=== PATIENT | male | born 1995 | race Caucasian/White ===

== ENCOUNTER 2024-05-31 04:00 | Day surgery (SDC) | payer OTHER ==
[~2024-05-31] VITALS: Ht 274.3 cm; Wt 82.8 kg
[2024-05-31] VITALS (238 sets, daily range): BP systolic 59–214; BP diastolic 39–178
--- NOTE | 2024-05-31 07:00 | NUR ---
Arrival & Pre-treatment Patient arrived to the ANR suite, identification and demographics confirmed. Patient to room 7, AAO, ambulatory, vitals obtained, ID/allergy/fall bands placed, changed into hospital gown, FERNANDA hose, and non-slip socks. Procedure and timeline explained for treatment and discharge. All questions answered and the patient presents no concerns at this time. V/S assessed, call light is near. Dr. Ren telephoned with patient intake information including usage, dose, last dose/time taken and initial vital signs. Patient history and allergies reviewed with MD. Orders received for 10mg PO Valium and 0.3mg PO Clonidine now. Will reassess per protocol and update MD with assessment and vitals.
[2024-05-31] MEDS ORDERED: DEXMEDETOMIDINE HCL IN SODIUM 100 ML IV SCH (07:25)
[2024-05-31] MEDS ORDERED: PHENYLEPHRINE HCL 10 MG in DEXTROSE 5% 250 ML IV SCH (07:25)
[2024-05-31] MEDS ORDERED: CYANOCOBALAMIN 500 MCG/TAB ( B12) PO PRN (07:30)
[2024-05-31] MEDS ORDERED: diazePAM 5 MG/TAB PO PRN ×2 (07:30→08:30)
[2024-05-31] MEDS ORDERED: cloNIDine HCL 0.1 MG/TAB PO PRN (07:30)
[2024-05-31] MEDS ORDERED: SODIUM CHLORIDE 0.9% 1,000 ML IV PRN ×3 (07:30→14:25)
[2024-05-31] MEDS ORDERED: PANTOPRAZOLE SODIUM Sesquihydr 40 MG/TAB PO PRN (07:30)
[2024-05-31] MEDS ORDERED: FAMOTIDINE 20 MG/TAB PO PRN (07:30)
[2024-05-31] MEDS ORDERED: SCOPOLAMINE 1.5 MG DIS TD PRN (07:30)
[2024-05-31] MEDS ORDERED: LACTATED RINGER'S 1,000 ML IV PRN ×2 (07:30→09:15)
[2024-05-31] MEDS ORDERED: ALBUTEROL SULFATE 2.5 MG VIAL IN PRN (07:30)
--- NOTE | 2024-05-31 07:30 | NUR ---
Patient medicated per MD orders. In addition to Clonidine and Valium, patient received 1000 mcg B12 PO, 20 mg Pepcid PO, and Scopolamine TD patch. Medication indication and education provided prior to adminstration.
[2024-05-31] MEDS ORDERED: ASCORBIC ACID 4,000 MG in SODIUM CHLORIDE 0.9% 1,000 ML IV SCH (08:00)
[2024-05-31 08:15] LABS: BASO% 0.6 % (0-3); HEMATOCRIT 44.9 % (39.0-50.0); HEMOGLOBIN 15.5 g/dl (14.0-18.0); IMMATURE GRANULOCYTES 0.1 % (0.0-5.0); LYMPH% 33.6 % (15-41); MEAN CELL VOLUME 86.5 fL CALC (80.0-100.0); MEAN CORPUSCULAR HGB 29.9 pG CALC (26.0-32.0); MEAN CORPUSCULAR HGB CONC 34.5 g/dL CAL (32.0-36.0); MONO% 7.1 % (2-13); NEUT# 4.48 thou/uL (1.82-7.42); NEUT% 54.6 % (42-76); RED BLOOD COUNT 5.19 mill/uL (4.70-6.10); RED CELL DISTRI WIDTH 11.6 % (11.5-15.5)
[2024-05-31 08:28] LABS: ALBUMIN 4.5 g/dL (3.2-5.0); BILIRUBIN, TOTAL 0.6 mg/dL (0.2-1.3); CREATININE 0.8 mg/dL (0.7-1.3); POTASSIUM 4.2 mmol/l (3.5-5.1); TOTAL PROTEIN 7.3 g/dL (6.3-8.2)
--- NOTE | 2024-05-31 08:30 | NUR ---
Dr. Ren telephoned with reassessment and new vital signs. Reviewed initial Valium and Clonidine dose with MD. Orders received for 5mg PO Valium now. Will reassess per protocol in 1.5 hours and update MD with assessment and vitals.
--- NOTE | 2024-05-31 08:40 | NUR ---
PATIENT BELONGINGS ASSESSED; VAPE PLACED IN RT SHOE. NO OTHER CONTRABAND NOTED. ALL OTHER BELONGINGS PLACED IN LOCKER CHISHOLM #1.
--- NOTE | 2024-05-31 09:00 | NUR ---
Patient resting comfortably in bed. No signs of active withdrawal or distress noted at this time. Continuous SPO2, rhythm, and respiratory monitoring initiated. IVF @ 250 mL/HR, room air, VSS.
[2024-05-31] MEDS ORDERED: MAGNESIUM SULFATE HEPTAHYDRATE 100 ML IV PRN (09:15)
[2024-05-31] MEDS ORDERED: NALTREXONE HCL 50 MG/TAB VT PRN (09:15)
[2024-05-31] MEDS ORDERED: diazePAM 5 MG/TAB VT PRN (09:15)
[2024-05-31] MEDS ORDERED: PROPOFOL 10 MG/ML 100ML VIAL IV PRN (09:15)
[2024-05-31] MEDS ORDERED: OCTREOTIDE ACETATE 100 MCG/VIAL SDV SC PRN (09:15)
[2024-05-31] MEDS ORDERED: STERILE WATER FOR IRRIGATION 1,000 ML BTL IR PRN (09:15)
[2024-05-31] MEDS ORDERED: cloNIDine HYDROCHLORIDE 100 MCG/ML 10 ML INJ IV PRN (09:15)
[2024-05-31] MEDS ORDERED: LIDOCAINE HCL 1% (10MG/ML) 100 MG/10 ML MDV VT PRN ×2 (09:15)
[2024-05-31] MEDS ORDERED: ONDANSETRON HCl 4 MG/2 ML SDV IV PRN ×3 (09:15→19:00)
[2024-05-31] MEDS ORDERED: ROCURONIUM BROMIDE 10 MG/ML 5 ML VIAL IV PRN (09:15)
[2024-05-31] MEDS ORDERED: cloNIDine HCL 0.1 MG/TAB VT PRN (09:15)
[2024-05-31] MEDS ORDERED: MIDAZOLAM HCL 2 MG/2 ML VIAL IV PRN ×3 (09:15→14:30)
[2024-05-31] MEDS ORDERED: SUCCINYLCHOLINE CHLORIDE 20 MG/ML 10ML VIAL IV PRN (09:15)
[2024-05-31] MEDS ORDERED: DiphenhydrAMINE HCL 50 MG/ML SDV IV PRN (09:15)
[2024-05-31] MEDS ORDERED: POTASSIUM CHLORIDE 20 MEQ/100 ML BAG IV PRN (09:15)
[2024-05-31] MEDS ORDERED: THIAMINE HCL 100 MG/ML 2ML VIAL IV PRN (09:15)
[2024-05-31] MEDS ORDERED: LIDOCAINE HCL 1% (10MG/ML) 100 MG/10 ML MDV IV PRN (09:15)
[2024-05-31] MEDS ORDERED: PROPOFOL 100 ML IV PRN (09:15)
--- NOTE | 2024-05-31 09:22 | NUR ---
CALL OUT TO MD FOR UPDATE ON PATIENT STATUS. ORDERS RECEIVED AND IMPLEMENTED. PATIENT TOLERATED WELL. WILL CONTINUE TO MONITOR.
--- NOTE | 2024-05-31 10:50 | NUR ---
Induction Note Time out performed at 1050. Patient placed on monitors, Saritha hugger, bilateral wrist restraints applied for ET tube protection. Versed 5mg given IV push at 1100 Tourniquet applied to LT arm Lidocaine 100mg given [id number] IV push followed by Rocoronium 10mg at 1102 IV push and held for 90 seconds. Propofol bolus of 120mg given at 1104. IV push. Succinylcholine 80mg given IV push at 1105. Smooth intubation with 7.5 ETT. Positive CO2. Positive Auscultation for air exchange. Patient placed on ventilator for spontaneous ventilation. Placed on Propofol IV drip at 1106. OG inserted. Positive air on auscultation. Positive gastric content. Stomach washed at this time.
--- NOTE | 2024-05-31 11:30 | NUR ---
OG close note Stomach washed at this time. Naltrexone 50 mg with Clonidine 0.1 mg via OG tube. OG will be clamped for 45 minutes.
--- NOTE | 2024-05-31 12:15 | NUR ---
OG open note OG open at this time. Gastric content draining into drainage bag. OG to drain for 45 minutes. Propofol will be titrated down based on patient.
--- NOTE | 2024-05-31 13:00 | NUR ---
OG close note Stomach washed at this time. Naltrexone 50 mg with Clonidine 0.2 mg via OG tube. OG will be clamped for 45 minutes.
[2024-05-31] MEDS ORDERED: NALTREXONE50 MG PO (13:42)
[2024-05-31] MEDS ORDERED: CLONIDINE0.1 MG PO (13:42)
[2024-05-31] MEDS ORDERED: KLONOPIN2 MG PO (13:42)
[2024-05-31] MEDS ORDERED: clonazePAM 1 MG/TAB PO PRN (14:25)
--- NOTE | 2024-05-31 14:30 | NUR ---
OG close note Stomach washed at this time. Naltrexone 50 mg with Clonidine 0.2 mg via OG tube. OG will be clamped for 45 minutes.
--- NOTE | 2024-05-31 18:11 | NUR ---
Extubation note Closing medications given Benadryl 50mg IV push, Decadron 10mg IV push,Magnesium 4 grams IV, Zofran 8mg IV push, Octreotide 100mcg SC. Stomach washed out prior to extubation. Suctioned gastric content. OG removed. Patient extubated. Propofol Discontinued. Wrist restraints removed. Saritha hugger Removed. See ANR Moderate sedate recovery record for further notes and assessment.
--- NOTE | 2024-05-31 18:35 | NUR ---
Patient's support person (SP) telephoned with update. All questions answered, no concerns presented at this time. SP agreeable to POC.
--- NOTE | 2024-05-31 18:38 | NUR ---
Transfer Note Patient transferred to medical-surgical unit private room. Report given to primary nurse at bedside. Head to toe assessment, treatment, medications, I/O, IV access reviewed with primary nurse. All questions answered. IVF to continue at 100 ml/hr, NC @ 2L, no adventitious breath sounds. Safety precautions in place, bed locked and in lowest position, call light in reach. Handoff of care complete at this time.
[2024-05-31] MEDS ORDERED: PROMETHAZINE HCL 12.5 MG in SODIUM CHLORIDE 0.9% 50 ML IV PRN (19:00)
[2024-05-31] MEDS ORDERED: HALOPERIDOL LACTATE 5 MG/ML SDV IV PRN (19:00)
[2024-05-31] MEDS ORDERED: KETOROLAC TROMETHAMINE 30 MG/ML SDV IV PRN (19:00)
[2024-05-31] MEDS ORDERED: ACETAMINOPHEN 1,000 MG/100 ML VIAL IV PRN (19:00)
[2024-05-31] MEDS ORDERED: ACETAMINOPHEN 500 MG TAB PO PRN (19:00)
[2024-05-31] MEDS ORDERED: PROMETHAZINE HCL 25 MG in SODIUM CHLORIDE 0.9% 50 ML IV PRN (19:00)
--- NOTE | 2024-05-31 20:20 | NUR ---
RECEVIED REPORT FROM ANR NURSE. PT NOTED TOSSING AND TURNING IN BED, MOANING AND GROAINING, AND YELLING OUT FOR "NURSE" AND STATING "PLEASE HELP ME" PT PRESENTS EXTREMELY RESTLESS AND DROWSY. ALERT TO SELF ONLY AT THIS TIME. ADMINSITERED PRN MEDICATION PER EMAR FOR PAIN AND LAXMI. ECNOURAGED PT TO RELAX AND LET MEDICATION TAKE EFFECT. STATUS UNCHANGED AT THIS TIME. VSS. IVF RUNNING PER EMAR. BED ALARM ON AND SAFETY PRECAUTIONS IN PLACE.
[2024-05-31] MEDS ORDERED: diazePAM 5 MG/TAB PO SCH (20:46)
[2024-05-31] MEDS ORDERED: NALTREXONE HCL 50 MG/TAB PO SCH (20:46)
[2024-05-31] MEDS ORDERED: cloNIDine HCL 0.1 MG/TAB PO SCH ×2 (20:47→23:00)
[2024-05-31] MEDS ORDERED: PATIENT' OWN MED CONTROLLED 1 EA DOSE IV PRN (21:00)
--- NOTE | 2024-05-31 21:10 | NUR ---
PT WAS PRESENTING WITH MULTIPLE WITHDRAWL SYMPTOMS. RESTLESSNESS, SWEATING AND GOOSEBUMPS WELL VERBALLY VOICING FEELING THEY ARE WITHDRAWLING. DR. THOMPSON WAS INFORMED OF PT STATUS AND TORB FOR MEDICATIONS THAT WERE FAXED TO PHARMACY. ADMINISTERED THEM PER EMAR AND PT TOLERATED WELL. PT DENIES ANY N/V. PAIN MEDICATION PREVIOUSLY ADMINSITERED. ENCOURAGED REST TO HELP WITH RECOVERY PROCESS. IVF RUNNING PER EMAR. BED ALARM ON AND SAFETY PRECAUTIONS IN PLACE.
--- NOTE | 2024-05-31 22:10 | NUR ---
PT IS LAYING IN BED WITH EYES CLOSED, RESTING AT THIS TIME. WILL TURN AND REPOSITION SELF IN BED OCCASIONALLY. IVF RUNNING PER EMAR. NO S/S OF DISTRESS. BED ALARM ON AND SAFETY PRECAUTIONS IN PLACE.
--- NOTE | 2024-06-01 | NUR ---
ADMINSITERED SCHEDULED MEDS PER EMAR, PT TOELRATED WELL AND IS LAYING IN BED ON LT SIDE SLEEPING AT THIS TIME. IVF RUNNING PER EMAR. VSS. NO S/S OF DISTRESS. BED ALARM ON AND SAFETY PRECAUTIONS IN PLACE.
--- NOTE | 2024-06-01 02:00 | NUR ---
PT C/O BACK PAIN, ASSISTED WITH REPOSITIONING IN BED FOR COMFORT. PAIN MEDICATION ADMINSITERED PER EMAR. AND HOT PACKS APPLIED. PT LAYING IN BED ON RT SIDE, RESTING COMFORTABLY AT THIS TIME. IVF RUNNING PER EMAR. BED ALARM ON AND SAFETY PRECAUTIONS IN PLACE.
--- NOTE | 2024-06-01 03:00 | NUR ---
PT WOKE UP C/O "FEELING BAD" AND REQUESTING "MEDICATION TO PUT ME OUT" EDUCATED PT ON MED SCHEDULE. OFFERED COMFORT TECHNIQUES, AMBULATING OR SHOWER BUT PT REFUSED, ONLY REQUESTING MEDICATION. ENCOURAGED TO RELAX AND REST UNTIL MEDS DUE. PT LAYING IN BED FOLWERS, WITH PILLOWS BEHIND BACK FOR COMFORT. BED ALARM ON AND SAETY PRECAUTIONS IN PLACE.
[2024-06-01 03:35] VITALS: BP 124/68
[2024-06-01] MEDS ORDERED: clonazePAM 1 MG/TAB PO PRN ×2 (04:00→08:00)
[2024-06-01] MEDS ORDERED: NALTREXONE HCL 50 MG/TAB PO SCH (04:00)
[2024-06-01] MEDS ORDERED: cloNIDine HCL 0.1 MG/TAB PO PRN (04:00)
--- NOTE | 2024-06-01 04:35 | NUR ---
ADMINSITERED SCHEDULED MEDS AND PRN MED FOR LAXMI PER EMAR. PT LAYING IN BED ON LT SIDE, C/O "FEELING REALLY BAD AND WITHDRAWLING" EDUCATED PT ON MEDS THAT WERE GIVEN TO ASSIST WITH SYMPTOMS. PT DOES NOT PRESENT WITH ANY WITHDRAWL SIGNS AT THIS TIME, BUT DOES PRESENT DROWSY. PT C/O BACK PAIN, PAIN MEDICATION, HOT PACKS AND REPOSITIONING HAVE ALL BEEN IMPLEMENTED. PT C/O THEY HAVE NOT SLEPT "FOR OVER 24HRS" ASSURED PT THEY HAVE HAD A REASONABLE AMOUNT OF SLEEP SO FAR AND ENCOURAGED TO KEEP A POSITIVE ATTITUDE AND REST FOR RECOVERY. VSS. IVF RUNNING PER EMAR. BED ALARM ON AND SAFETY PRECAUTIONS IN PLACE.
[2024-06-01 07:26] LABS: BASO% 0.1 % (0-3); IMMATURE GRANULOCYTES 0.2 % (0.0-5.0); LYMPH% 8.7 % (15-41); MEAN CELL VOLUME 88.8 fL CALC (80.0-100.0); MEAN CORPUSCULAR HGB 30.4 pG CALC (26.0-32.0); MEAN CORPUSCULAR HGB CONC 34.3 g/dL CAL (32.0-36.0); MONO% 5.5 % (2-13); NEUT# 10.58 thou/uL (1.82-7.42); NEUT% 85.5 % (42-76); RED BLOOD COUNT 4.37 mill/uL (4.70-6.10)
[2024-06-01 07:46] LABS: HEMATOCRIT 38.8 % (39.0-50.0); HEMOGLOBIN 13.3 g/dl (14.0-18.0)
[2024-06-01 07:51] LABS: ALBUMIN 4.1 g/dL (3.2-5.0); CREATININE 0.7 mg/dL (0.7-1.3); MAGNESIUM 2.2 mg/dL (1.6-2.3); TOTAL PROTEIN 6.6 g/dL (6.3-8.2)
[2024-06-01 07:57] LABS: POTASSIUM 3.3 mmol/l (3.5-5.1)
[2024-06-01] MEDS ORDERED: ACETAMINOPHEN 325 MG/TAB PO SCH (08:00)
[2024-06-01] MEDS ORDERED: PANTOPRAZOLE SODIUM Sesquihydr 40 MG/TAB PO SCH (08:00)
[2024-06-01] MEDS ORDERED: cloNIDine HCL 0.1 MG/TAB PO SCH (08:00)
--- NOTE | 2024-06-01 08:00 | NUR ---
PATIENT A/O X3; KIRSTEN AND HYDROGRAPHIC ENGINEER IN ROOM WITH RADHA, PATIENT VERBALIZED THAT HE DOES NOT WANT TO STAY HERE, THAT HE WILL WALK OUT, HE WANTS TO LEAVE, NEO PULLED BOTH IV SITES OUT OF HIS ARM, IRAIDA AND KIRSTEN CLEANED AND REMOVED SOILED BLANKETS, PATIENT DID NOT WANT TO AT FIRST; KIRSTEN TALKING TO RADHA AND MYSELF EXPLAINING TO [facility] THAT IF HE LEAVES HE WILL BE LEAVING AMA, ADISNET VERBALIZED UNDERSTANDING AND AGGRED TO SIGN AMA, IRAIDA CALLED PROVIDER AND INFORMED HIM THAT PATIET REFUSE TO STAY;PATIENT VERBALIZED HE WILL WALK OUT IF HE DONT LEAVE REQUESTED TO TALK TO HIS SUPPORT PERSON, KIRSTEN ALLOWED PATIENT TO TALK TO HIS FAMILY, PERSONAL CLOTHES WAS RETURNED TO [facility], AWAITING HIS FAMILY
[2024-06-01] MEDS ORDERED: cloNIDine HCL 0.1 MG/TAB PO ONE (08:05)
[2024-06-01] MEDS ORDERED: NALTREXONE HCL 50 MG/TAB PO ONE (08:05)
[2024-06-01 08:24] VITALS: BP 101/59
--- NOTE | 2024-06-01 08:53 | NUR ---
PATIENT STATED THAT HE IS GOING TO RUN OUT, HE NEEDS HIS STUFF. HE REFUSING TO STAY HERE, PULLED BOTH HIS IVS OUT OF ARM; REFUSED ANY MEDICATIONS AT THIS POINT; AMA FORM SIGNED; DR. THOMPSON CALLED AND KIRSTEN CALLED AND INFOMRED; UNA AND RONY IN HALLWAY WITH ME
[2024-06-01] MEDS ORDERED: MAGNESIUM OXIDE 400 MG/TAB PO PRN (09:00)
[2024-06-01] MEDS ORDERED: Cholecalciferol 2,000 UNIT/TAB PO PRN (09:00)
[2024-06-01] MEDS ORDERED: POTASSIUM CHLORIDE 20 MEQ/TAB PO SCH ×2 (09:00→10:00)
[2024-06-01] MEDS ORDERED: ACETAMINOPHEN 500 MG TAB PO PRN (09:00)
--- NOTE | 2024-06-01 09:03 | NUR ---
IV site discontinued, cath intact. No edema , no redness, voices no discomfort. Patient decides to leave AMA. Multiple attempts made to ecourage patient to remain here for continued treatment. Explained to patient all risks of leaving against medical advice including . Pt verbalized understanding of all risks. Pt also encouraged to return to [facility] at any time, especially if symptoms continue or become worse. Pt verbalized understanding.
== END 2024-06-01 09:01 | disposition left against medical advice (07) | DRG 894 ==
LOC: MS2 04:00 → ANR 04:00 → MS2 07:12 → ANR 09:00
PROVIDERS: ATTEND Anesthesiology
DX: F11.20 Opioid dependence, uncomplicated (principal)
CPT/HCPCS: J0131; J1100; J1200; J1630; J2354; J2405; J2704; J3411; J3475; J3480; J3490